=== PATIENT | male | born 1960 | race African-American/Black ===

== ENCOUNTER 2025-08-03 09:55 | Emergency (ER) | payer OTHER ==
[2025-08-03 10:34] VITALS: BP 119/65; PULSE 83; RESP 18; TEMP 98.2; BMI 38.0
[2025-08-03] MEDS ORDERED: IBUPROFEN 400 MG TABLET (FP) PO ONE ×2 (13:04→13:14)
== END 2025-08-03 13:10 | disposition home or self-care (01) ==
LOC: JER 09:55
DX: M79.602 Pain in left arm (principal); R22.32 Localized swelling, mass and lump, left upper limb; R22.2 Localized swelling, mass and lump, trunk; R93.6 Abnormal findings on diagnostic imaging of limbs
CPT/HCPCS: 73060-TC-LT-FY; 99283-25